=== PATIENT | female | born 1945 | race Caucasian/White ===

== ENCOUNTER → 2016-12-12 | Outpatient (CLI) | payer MEDICARE, OTHER | END | disposition home or self-care (01) | LOC: PCVCIMAG 09:41 | PROVIDERS: ATTEND Internal Medicine | DX: I25.10 Atherosclerotic heart disease of native coronary artery without angina pectoris (principal); I65.23 Occlusion and stenosis of bilateral carotid arteries; E78.00 Pure hypercholesterolemia, unspecified; I10 Essential (primary) hypertension; N18.9 Chronic kidney disease, unspecified; E11.9 Type 2 diabetes mellitus without complications; G47.30 Sleep apnea, unspecified | CPT/HCPCS: 93005; 93880; G0463 ==

== ENCOUNTER → 2017-05-23 | Outpatient (CLI) | payer MEDICARE, OTHER | END | disposition home or self-care (01) | LOC: PCVCCLINIC 10:27 | PROVIDERS: ATTEND Internal Medicine | DX: I44.0 Atrioventricular block, first degree (principal); I45.10 Unspecified right bundle-branch block; I25.10 Atherosclerotic heart disease of native coronary artery without angina pectoris; I65.23 Occlusion and stenosis of bilateral carotid arteries; I12.9 Hypertensive chronic kidney disease with stage 1 through stage 4 chronic kidney disease, or unspecified chronic kidney disease; E11.22 Type 2 diabetes mellitus with diabetic chronic kidney disease; N18.3 Chronic kidney disease, stage 3 (moderate); E78.00 Pure hypercholesterolemia, unspecified; E78.5 Hyperlipidemia, unspecified; G47.33 Obstructive sleep apnea (adult) (pediatric); Z79.4 Long term (current) use of insulin; Z79.82 Long term (current) use of aspirin; Z79.899 Other long term (current) drug therapy; Z95.1 Presence of aortocoronary bypass graft; Z88.0 Allergy status to penicillin; Z96.653 Presence of artificial knee joint, bilateral; Z91.048 Other nonmedicinal substance allergy status | CPT/HCPCS: 93005; G0463 ==

== ENCOUNTER → 2018-01-01 | Outpatient (CLI) | payer MEDICARE, OTHER | END | disposition home or self-care (01) | LOC: PCVCIMAG 08:07 | DX: I12.9 Hypertensive chronic kidney disease with stage 1 through stage 4 chronic kidney disease, or unspecified chronic kidney disease (principal); E11.22 Type 2 diabetes mellitus with diabetic chronic kidney disease; N18.3 Chronic kidney disease, stage 3 (moderate); I65.23 Occlusion and stenosis of bilateral carotid arteries; I25.10 Atherosclerotic heart disease of native coronary artery without angina pectoris; I35.0 Nonrheumatic aortic (valve) stenosis; E78.00 Pure hypercholesterolemia, unspecified; R00.1 Bradycardia, unspecified; G47.33 Obstructive sleep apnea (adult) (pediatric); Z87.891 Personal history of nicotine dependence; Z79.82 Long term (current) use of aspirin; Z79.899 Other long term (current) drug therapy | CPT/HCPCS: 93005; 93306; 93880; G0463 ==

== ENCOUNTER → 2018-07-04 | Outpatient (CLI) | payer MEDICARE, OTHER | END | disposition home or self-care (01) | LOC: PCVCCLINIC 10:10 | PROVIDERS: ATTEND Internal Medicine | DX: N18.3 Chronic kidney disease, stage 3 (moderate) (principal); E78.00 Pure hypercholesterolemia, unspecified; I65.23 Occlusion and stenosis of bilateral carotid arteries; R00.1 Bradycardia, unspecified; G47.33 Obstructive sleep apnea (adult) (pediatric); Z87.891 Personal history of nicotine dependence; Z79.82 Long term (current) use of aspirin; Z79.4 Long term (current) use of insulin; Z88.0 Allergy status to penicillin | CPT/HCPCS: 93005; G0463 ==

== ENCOUNTER → 2019-02-13 | Outpatient (CLI) | payer MEDICARE, OTHER ==
--- NOTE | 2019-02-13 14:26 | PCVCIMAG ---
APPROVED REPORT Indications Stenosis Risk Factors Hypertension: Hyperlipidemia CAD, Diabetes, Doppler Spectral Velocity Analysis PSV / EDVPSV / EDV ECA (R) 193 / 9 cm/sECA (L) 249 / 6 cm/s dICA (R) 83 / 12 cm/sdICA (L) 95 / 24 cm/s Chelsey (R) 87 / 12 cm/smICA (L) 177 / 22 cm/s pICA (R) 160 / 23 cm/spICA (L) 190 / 19 cm/s Bulb (R) 104 / 18 cm/sBulb (L) 119 / 10 cm/s dCCA (R) 124 / 16 cm/sdCCA (L) 130 / 12 cm/s mCCA (R) 124 / 16 cm/smCCA (L) 121 / 14 cm/s Vert (R) 48 / 0 cm/sVert (L) 66 / 8 cm/s ICA/CCA 1.29ICA/CCA 1.46 Basic Measurements Blood Pressure: Pulses: Right Left RightLeft Brachial(Sitting) 130/86veBw927/76mmHgTemporal Real Time B-Mode Imaging Vert. (R)AntegradeVert. (L)Antegrade Findings The right carotid bulb has moderate calcified plaque. The right proximal internal carotid artery shows 40-50% stenosis. The right common carotid artery shows no significant stenosis. The right external carotid artery shows >50% stenosis. The left carotid bulb has moderate calcified plaque. The left proximal internal carotid artery shows 50-60% stenosis. The left common carotid artery shows <40% stenosis. The left external carotid artery shows >50% stenosis. Conclusion 1. Right internal carotid artery stenosis (40-50%). 2. Left internal carotid artery stenosis (50-60%) 3. Antegrade vertebral flow
--- NOTE | 2019-02-13 14:40 | PCVCIMAG ---
APPROVED REPORT Study performed: 02/13/2019 13:24:26 EXAM: Comprehensive 2D, Doppler, and color-flow Echocardiogram Patient Location: Echo lab Room #: 2Status: routine BSA: 2.03 HR: 58 bpmBP: 136/76 mmHg Rhythm: NSR Other Information Study Quality: Fair Risk Factors: Cardiac Risk Factors: DM Indications Aortic Valve Disease Diabetes CAD S/P CABG,SHARMIN 2D Dimensions IVSd: 11.32 (7-11mm)LVOT Diam: 19.89 (18-24mm) LVDd: 56.62 mm PWd: 10.91 (7-11mm)Ascending Ao: 29.79 (22-36mm) LVDs: 26.08 (25-40mm) Left Atrium: 46.30 (27-40mm) Aortic Root: 27.46 mm LV Single Plane 4CH: 52.25 % LV Single Plane 2CH: 61.58 % Biplane EF: 57.0 % Volumes Left Atrial Volume (Systole) Single Plane 4CH: 69.28 mLSingle Plane 2CH: 68.34 mL Biplane LA Volume: 75.00 mLLA ESV Index: 37.00 mL/m2 Aortic Valve AoV Peak Chapo.: 2.42 m/s AO Peak Gr.: 23.71 mmHgLVOT Max P.63 mmHg AO Mean Gr.: 12.98 mmHgLVOT Mean P.20 mmHg AO V2 Mean: 1.70 m/sLVOT Max V: 1.24 m/s AO V2 VTI: 57.66 cmLVOT Mean V: 1.00 m/s PRUDENCIO (VTI): 1.77 [id number] V1 VTI: 32.94 cm PRUDENCIO Vmax: 1.59 cm2 SV (LVOT): 102.30 mL Mitral Valve E/A Ratio: 1.3 MV Decel. Time: 187.25 ms MV E Max Chapo.: 1.34 m/s MV A Chapo.: 1.03 m/s IVRT: 83.04 ms TDI E/Lateral E': 14.89E/Medial E': 14.89 Medial E' Chapo.: 0.09 m/s Lateral E' Chapo.: 0.09 m/s Pulmonary Valve PV Peak Chapo.: 1.34 m/sPV Peak Gr.: 7.14 mmHg Pulmonary Vein P Vein S: 0.60 m/sP Vein A: 0.26 m/s P Vein D: 0.56 m/sP Vein A Dur.: 103.8 msec P Vein S/D Ratio: 1.07 Tricuspid Valve TR Peak Chapo.: 2.00 m/s TR Peak Gr.: 16.00 mmHg TV Vmax: 0.81 m/sPA Pressure: 23.00 mmHg Left Ventricle Left ventricle is at the upper limits of normal. There is normal LV segmental wall motion. Moderate basal septal hypertrophy is present. Left ventricular systolic function is normal. The left ventricular ejection fraction is within the normal range. LVEF is 55-60%. The left ventricular diastolic function is normal. Right Ventricle The right ventricle is normal size. The right ventricular systolic function is normal. Atria Left atrium is mildly dilated. The right atrium size is normal. Aortic Valve Aortic valve is trileaflet, mildly calcified. No aortic regurgitation is present. Mild aortic stenosis. Calculated aortic valve area is 1.5-1.6 cm2 with maximum pressure gradient of 24 mmHg and mean pressure gradient of 13 mmHg. Mitral Valve Mild-moderate mitral annular calcification There is no mitral valve regurgitation noted. No evidence of mitral valve stenosis. Tricuspid Valve The tricuspid valve is normal in structure. Trace tricuspid regurgitation. No pulmonary hypertension. Pulmonic Valve The pulmonary valve is normal in structure. There is no pulmonic valvular regurgitation. Great Vessels The aortic root is normal in size. The ascending aorta is normal in size. Aortic arch is normal in caliber. Aortic arch is not well visualized. IVC is normal in size and collapses >50% with inspiration. Pericardium There is no pericardial effusion. There is no pleural effusion. <Conclusion> Left ventricular systolic function is normal. There is normal LV segmental wall motion. LVEF is 55-60%. Aortic valve is trileaflet, mildly calcified. Mild aortic stenosis, no insufficiency. Calculated aortic valve area is 1.5-1.6 cm2 with maximum pressure gradient of 24 mmHg and mean pressure gradient of 13 mmHg. Mild-moderate mitral annular calcification. No mitral valve regurgitation Pulmonary artery pressure could not be reliably ascertained There is no pericardial effusion.
== END | disposition home or self-care (01) ==
LOC: PCVCIMAG 12:46
PROVIDERS: ATTEND Internal Medicine
DX: I65.23 Occlusion and stenosis of bilateral carotid arteries (principal); I25.10 Atherosclerotic heart disease of native coronary artery without angina pectoris; I35.0 Nonrheumatic aortic (valve) stenosis; I12.9 Hypertensive chronic kidney disease with stage 1 through stage 4 chronic kidney disease, or unspecified chronic kidney disease; E11.22 Type 2 diabetes mellitus with diabetic chronic kidney disease; N18.3 Chronic kidney disease, stage 3 (moderate); E78.00 Pure hypercholesterolemia, unspecified; G47.33 Obstructive sleep apnea (adult) (pediatric); E78.5 Hyperlipidemia, unspecified; Z79.899 Other long term (current) drug therapy; Z95.1 Presence of aortocoronary bypass graft; Z87.891 Personal history of nicotine dependence; Z79.4 Long term (current) use of insulin
CPT/HCPCS: 93005; 93306; 93880; G0463

== ENCOUNTER → 2019-08-07 | Outpatient (CLI) | payer MEDICARE, OTHER | END | disposition home or self-care (01) | LOC: PCVCCLINIC 14:05 | PROVIDERS: ATTEND Internal Medicine | DX: I25.10 Atherosclerotic heart disease of native coronary artery without angina pectoris (principal); I35.0 Nonrheumatic aortic (valve) stenosis; I65.23 Occlusion and stenosis of bilateral carotid arteries; I12.9 Hypertensive chronic kidney disease with stage 1 through stage 4 chronic kidney disease, or unspecified chronic kidney disease; N18.3 Chronic kidney disease, stage 3 (moderate); E78.00 Pure hypercholesterolemia, unspecified; G47.33 Obstructive sleep apnea (adult) (pediatric); Z87.891 Personal history of nicotine dependence; Z79.82 Long term (current) use of aspirin; Z88.0 Allergy status to penicillin; Z88.8 Allergy status to other drugs, medicaments and biological substances | CPT/HCPCS: 93005; G0463 ==